=== PATIENT | male | born 1995 | race Native Hawaiian/Other Pacific Islander ===

== ENCOUNTER 2016-05-17 21:54 | Observation (INO) | payer SELFPAY ==
[~2016-05-17] VITALS: Ht 162.6 cm; Wt 58.8 kg
[2016-05-17 22:57] VITALS: BP 128/74; PULSE 78; RESP 18; O2SAT 99
[2016-05-17 23:55] LABS: BASOPHILS % (AUTO) 0.1 % (0-3); EOSINOPHILS % (AUTO) 0.1 % (0-5); MONOCYTES % (AUTO) 8.5 % (4-12); Mean Corpuscular Hemoglobin 30.8 pg (27.0-35.0); Mean Corpuscular Volume 90.1 fL (81-100); NEUTROPHILS % (AUTO) 85.8 % (40-74); Platelet Count 281 bil/L (150-400)
[2016-05-18] VITALS (15 sets, daily range): BP systolic 98–129; BP diastolic 5–79; PULSE 53–72; RESP 10–19; O2SAT 94–100
[2016-05-18] MEDS ORDERED: Iohexol 300 mg/mL 30 mL Inj PO ONE
[2016-05-18] MEDS ORDERED: Sodium Chloride LOK Flush 10 mL Syringe IVFLUSH SCH (00:30)
[2016-05-18] MEDS ORDERED: metroNIDAZOLE Inj 500 MG in IV Premix 1 EACH IV ONE (01:40)
[2016-05-18] MEDS ORDERED: cefTRIAXone Inj 2,000 MG in IV Premix 1 EACH IV ONE (01:40)
[2016-05-18] MEDS ORDERED: 0.9% Sodium Chloride 1,000 ML IV SCH (01:40)
[2016-05-18] MEDS ORDERED: Ondansetron 2 mg/mL 2 mL Inj IVPUSH PRN ×2 (01:45→08:25)
[2016-05-18] MEDS ORDERED: Polyethylene Glycol (PEG) 17 Gm Powder PO PRN (01:45)
[2016-05-18] MEDS ORDERED: Alum-Mag Hydrox-Simeth 30 mL Suspension PO PRN (01:45)
[2016-05-18] MEDS ORDERED: metroNIDAZOLE Inj 500 MG in IV Premix 1 EACH IV SCH (01:50)
[2016-05-18] MEDS ORDERED: HYDROmorphone 1 mg/mL Inj IVPUSH PRN ×2 (01:50→08:25)
--- NOTE | 2016-05-18 02:18 | ED.REPORT ---
HPI-Abd Pain M Under 40 Date of Service May 17, 2016 ED Provider: Ankur Burr DO History of Present Illness: Mr. Vimal Peña is a healthy 20 year old gentlman with no significnat past medical history who presents to the [facility] Emergency Department with a 6 hour history of intermittant abdominal pain and 2 episodes of vomiting clear fluid. He awoke today around 5pm and states that his abdominal pain was 7/10 and dull that resembled muscle spasms. He denies any sick contacts, ingesting chemicals/food, and testicular pain. He reports mild subjective fever, mild abdominal pain, mild non productive cough, mild nasal congestion, 1 day hx of mild constipation. Nausea has since subsided. He denies headache, dizziness, chest pain, shortness of breath, diarrhea. Nursing Notes Stated Complaint: ABDOMINAL PAIN/FEVER Chief Complaint: Male Abdominal Pain Nursing Notes Reviewed: Yes Allergies: Coded Allergies: No Known Allergies (Unverified , 05/17/16) Scheduled Polyethylene Glycol 3350 (Miralax) 17 Gm Powd.pack 17 GM PO DAILY Scheduled PRN oxyCODONE (oxyCODONE) 5 Mg Tablet 5 MG PO Q4H PRN PRN For Pain Miscellaneous Medications ([No Meds]) General Time Seen by MD: 23:14 Chief Complaint Abdominal pain Review of Systems Review of Systems Note: A comprehensive review of systems was conducted with the patient and found to be negative except as above in the History of Present Illness. Physical Exam Physical Exam Notes: General: Young healthy gentleman in no acute distress, well-developed, well-nourished, appropriately interactive HEENT: Normocephalic, atraumatic. External ears without defect. Pupils equal, round, and reactive to light and accommodation. Anicteric sclerae, moist conjunctivae, and no lid lag. Oropharynx free of erythema and cobble stoning with moist mucosa. Neck: Supple with full range of motion. No jugular venous distension. No bruits. No lymphadenopathy or thyromegaly. Cardiovascular: Regular rate and rhythm with no murmurs, rubs, or gallops appreciated Pulmonary: Clear to auscultation bilaterally with no crackles, wheezes, or rhonchi. Normal respiratory effort with no use of accessory muscles. Abdomen: Bowel tones present. Soft, Very mildly tender to palpation on right lower quadrant, nondistended. No hepatosplenomegaly or masses appreciated. Extremities: No clubbing, cyanosis, edema, or lymphadenopathy appreciated. Skin: Normal temperature, turgor, and texture; no rash, ulcers, or subcutaneous nodules appreciated. Neurological: Cranial nerves grossly intact. Normal muscle strength, tone, and bulk. Reflexes, coordination, and sensory function within normal limits. No known gait impairment. Psychiatric: Normal mood and affect. Alert and oriented to person, place, and time. Initial Vital Signs Vital Signs (First) Date Time Temp Pulse Resp B/P Pulse Ox O2 Delivery O2 Flow Rate FiO2 05/17/16 22:57 36.3 78 18 128/74 99 Room Air Interpretation & Diagnostics Lab Results Interpretation Result Diagram: 05/17/16 2339 05/17/16 2339 Test 05/17/16 23:39 White Blood Count 15.5th/mm3 (3.8-10.1) Red Blood Count 4.96mil/mm3 (4.40-5.80) Hemoglobin 15.3g/dL (13.8-17.2) Hematocrit 44.7% (41.0-50.0) Mean Corpuscular Volume 90.1fL (81-100) Mean Corpuscular Hemoglobin 30.8pg (27.0-35.0) Mean Corpuscular Hemoglobin Concent 34.2% (32.0-37.0) Red Cell Distribution Width 12.1% (12.3-15.4) Platelet Count 281bil/L (150-400) Neutrophils (%) (Auto) 85.8% (40-74) Lymphocytes (%) (Auto) 5.2% (14-46) Monocytes (%) (Auto) 8.5% (4-12) Eosinophils (%) (Auto) 0.1% (0-5) Basophils (%) (Auto) 0.1% (0-3) Sodium Level 140mEq/L (134-144) Potassium Level 4.0mEq/L (3.5-5.2) Chloride Level 103mEq/L (97-108) Carbon Dioxide Level 25mmol/L (18-29) Blood Urea Nitrogen 13mg/dL (6-20) Creatinine 0.72mg/dL (0.76-1.27) Estimat Glomerular Filtration Rate 148mL/min (>59) Glucose Level 98mg/dL (60-99) Calcium Level 9.0mg/dL (8.5-10.1) Total Bilirubin 0.7mg/dL (0.0-1.2) Aspartate Amino Transf (AST/SGOT) 25U/L (0-50) Alanine Aminotransferase (ALT/SGPT) 21U/L (0-44) Alkaline Phosphatase 90U/L (25-150) Total Protein 7.7g/dL (6.4-8.4) Albumin 4.2g/dL (3.4-5.0) Hold Diaz Top Tube Received (Received) Re-Eval/Medical Decision Med Decision/Clinical Course 1. Acute appendicitis, present on admission, Active. - CT KUB with oral / IV contrast Consistent with appendicitis with no evidence of abscess or perforation. - Vitals stable, WBC 15.5, - IV Rocephin 2GM x 1. IV Flagyl 500 mg Q8H. - IV Dilaudid 0.5 mg [id number]. - IV NS @ 100ml/hr. - Admit to surgery management - NPO and bed rest. Acetaminophen for mild pain when necessary. Bowel regimen Senna and MiraLAX scheduled and PRN. Zofran when necessary for nausea and vomiting. Patient Discharge & Departure Shift Change Sign-Out Discussed Complaint(s): Yes Laboratory Evaluation: Lab evaluation discussed Response to Therapy: Unchanged Primary Impression: Acute appendicitis Acute appendicitis type: unspecified acute appendicitis type Qualified Code: K35.80 - Unspecified acute appendicitis Disposition: Home Attending Statement 20-year-old male with vomiting and right lower quadrant tenderness. He is mildly tender on exam with some voluntary guarding. White blood cell count is elevated at 15,000. CT scan report per [facility] is acute early appendicitis. This certainly matches history, physical examination and laboratory work. Case discussed with Dr. Mendez from surgery. We will admit for IV antibiotics and surgical intervention later today. FRANKIE JUAREZ DO May 17, 2016 23:43 Ankur Burr DO May 18, 2016 02:17
[2016-05-18] MEDS ORDERED: HYDROmorphone 0.5 mg/0.5 mL iSecure Syringe IVPUSH PRN ×2 (02:45→03:05)
--- NOTE | 2016-05-18 04:22 | NUR ---
Admission Patient arrived to [facility] from ED via wheelchair, report taken from Chari MENSAH. ED visit d/t abdominal pain, nausea and vomiting. Observation status plan of appendectomy in the am. Transfers independently, NPO in preparation of surgery. A&O X4, able to make needs known. Oriented to call light, TV, and phone. Denies pain and or discomfort at this time. Continue to monitor pain.
--- NOTE | 2016-05-18 07:30 | NUR ---
to OR for lap appendectomy
--- NOTE | 2016-05-18 07:36 | PCM.HPANE ---
Patient Data Date of Service: May 18, 2016 Surgeon Admitting Provider:Apolinar Mendez MD Attending Provider:Apolinar Mendez MD Primary Care Physician:Franko Other Provider:Thi Gillespie Anesthesia Reason for Visit Acute Appendicitis Ht/WT & BMI Height (Feet): 5 Height (Inches): 4.00 Weight (Kilograms): 58.800 Body Mass Index 22.13 Allergies Coded Allergies: No Known Allergies (Unverified , 05/17/16) Past Anesthesia History Anesthesia History: Denies:: Anesthesia Reactions, Fam Anesthesia Reaction History History of ENT Problems?: No Hx of Heart Problems?: No Hx of Respiratory Problem?: No Hx Neurologic Problems?: No Hx of GI Problems?: No Hx of Problems?: No Male Hx: Denies:: Prostate Problems Scrotal Mass Testicular Surgery Hx Musculoskeletal Problems?: No Hx of Psycho/Social Problems?: No Hx Any Other Health Problems?: No History Blood Transfusions: Positive for:: Accept Blood Products? Denies:: Blood Transfusions Hx Alcohol Use: NoHx Substance Use: No Stop/Bang Treated for Sleep Apnea?: No Do You Have a CPAP Machine?: No S-Snoring: Do You Snore Loudly: No T-Tired: feel tired, fatigued: No O-Obsered: Observed not breath: No P-Blood Pressure: treated: No B- Body Mass Index > 35 kg/m2: No A- Age over 50: No N- Neck Large Circumference: No G- Gender Male: Yes MAX Total Score: 1 MAX Risk Assessment: Low Risk, <3 Yes Risk Assessment Category Category 1A: Patient has history of documented sleep apnea, and HAS NOT received any narcotic, sedative or anesthesia administration during this stay. Category 1B: Patient has history of documented sleep apnea, and HAS received any narcotic , sedative or anesthesia administration during this stay Category 2: Patient has SUSPECTED Obstructive Sleep Apnea, and HAS received any narcotic , sedative or anesthesia administration during this stay. Category 3: Patient has SUSPECTED Obstructive Sleep Apnea and HAS NOT received narcotic, sedative or anesthesia administration during this stay. Category 4: Outpatient in Procedural Areas with known sleep apnea or who screen positive for High Risk via the STOP/BANG questionnaire. Exam Exam Vital Signs Vital Signs Date Time Temp Pulse Resp B/P Pulse Ox O2 Delivery O2 Flow Rate FiO2 05/18/16 05:20 37.0 64 16 129/71 100 Room Air 05/18/16 03:06 37.1 72 19 120/78 99 Room Air 05/18/16 03:04 36.5 78 18 124/78 99 Room Air General Appearance: Alert, Oriented X3, Cooperative, No Acute Distress HEENT/AIRWAY: MP 2 Lungs: Clear to Auscultation, Normal Air Movement Heart: Exam Unremarkable, Regular Rate/Rhythm, No Murmurs/Rubs/Gallops Meds/Labs/Diagnostics Admission Meds Current Medications Iohexol (Omnipaque-300 Inj) 9,000 mg ONCE ONCE PO Last administered on 00:23; Start 05/18/16 at 00:00; Stop 05/18/16 at 00:01; Status DC Sodium Chloride 10 ml 10 ml TRINITY IVFLUSH Last administered on 05/18/16 00:55; Start 05/18/16 at 00:30 Ceftriaxone Sodium/Dextrose 2000 mg/Premix 50 ml @ 100 mls/hr ONCE ONCE IV Last administered on 05/18/16 02:02; Start 05/18/16 at 01:40; Stop 05/18/16 at 02:09; Status DC Sodium Chloride 1,000 ml @ 100 mls/hr Q10H IV Last administered on 05/18/16 02:02; Start 05/18/16 at 01:40 Metronidazole/ Sodium Chloride/ Premix (Flagyl Inj/IV Premix) 100 ml @ 200 mls/ hr Q8 IV Last administered on 05/18/16 02:34; Start 05/18/16 at 01:50 Labs Test 05/17/16 23:39 White Blood Count 15.5th/mm3 (3.8-10.1) Red Blood Count 4.96mil/mm3 (4.40-5.80) Hemoglobin 15.3g/dL (13.8-17.2) Hematocrit 44.7% (41.0-50.0) Mean Corpuscular Volume 90.1fL (81-100) Mean Corpuscular Hemoglobin 30.8pg (27.0-35.0) Mean Corpuscular Hemoglobin Concent 34.2% (32.0-37.0) Red Cell Distribution Width 12.1% (12.3-15.4) Platelet Count 281bil/L (150-400) Neutrophils (%) (Auto) 85.8% (40-74) Lymphocytes (%) (Auto) 5.2% (14-46) Monocytes (%) (Auto) 8.5% (4-12) Eosinophils (%) (Auto) 0.1% (0-5) Basophils (%) (Auto) 0.1% (0-3) Sodium Level 140mEq/L (134-144) Potassium Level 4.0mEq/L (3.5-5.2) Chloride Level 103mEq/L (97-108) Carbon Dioxide Level 25mmol/L (18-29) Blood Urea Nitrogen 13mg/dL (6-20) Creatinine 0.72mg/dL (0.76-1.27) Estimat Glomerular Filtration Rate 148mL/min (>59) Glucose Level 98mg/dL (60-99) Calcium Level 9.0mg/dL (8.5-10.1) Total Bilirubin 0.7mg/dL (0.0-1.2) Aspartate Amino Transf (AST/SGOT) 25U/L (0-50) Alanine Aminotransferase (ALT/SGPT) 21U/L (0-44) Alkaline Phosphatase 90U/L (25-150) Total Protein 7.7g/dL (6.4-8.4) Albumin 4.2g/dL (3.4-5.0) Hold Diaz Top Tube Received (Received) Plan Impression Patient chart reviewed, patient interviewed and anesthestic plan with risks, benefits, and alternatives discussed, and informed consent obtained. NPO Status: >8h ASA Physical Status: ASA1 Normal Healthy Anesthetic Plan: GA Bene/Risks/Altern/Consents: Yes HP Complete Prior to Induction: Yes Morgan Villavicencio MD May 18, 2016 07:36
[2016-05-18] MEDS ORDERED: Cefotetan Inj 2,000 MG in IV Premix 1 EACH IV ONE (07:40)
[2016-05-18] MEDS ORDERED: Lactated Ringer's 1,000 ML IV ONE (07:49)
--- NOTE | 2016-05-18 08:13 | HP ---
[address] [address] HISTORY AND PHYSICAL PATIENT: KELLIE LACEY : 1995 MR#: [id number] ADMIT: 05/18/2016 JOB ID: [id number] DATE OF VISIT: 05/18/2016 CHIEF COMPLAINT: A 20-year-old gentleman with possible appendicitis in consultation at the request of Ankur Burr DO. HISTORY OF PRESENT ILLNESS: The patient is a 20-year-old gentleman who was otherwise healthy until around 5:30 a.m. yesterday evening, when he started having abdominal pain, followed by a few episodes of vomiting. He also had subjective fever when he presented to the emergency department. He does not have any significant constipation or diarrhea that he talks about. He was evaluated in the emergency department and Dr. Burr diagnosed with appendicitis, and he was admitted to my team with antibiotics. Overnight his abdominal pain has improved, but he still has pain in the right lower quadrant. OTHER MEDICAL PROBLEMS: None. PRIOR OPERATIONS: None. MEDICATIONS AT HOME: None. ALLERGIES: None. REVIEW OF SYSTEMS: Twelve point review of systems negative other than the pertinent positives noted in history of present illness and other medical problems. INVESTIGATIONS: Labs: May 17, 2016: WBC 15.5, hemoglobin 15.3, platelets 281. Creatinine 0.72. Normal liver function studies. A CT abdomen and pelvis from May 18, 2016 shows inflamed appendix with surrounding fat stranding, not particularly enlarged but was thought to be consistent with appendicitis. ASSESSMENT AND PLAN: Discussed the pathophysiology and treatment rationale for appendicitis and recommended laparoscopic appendectomy. After discussing the risks, benefits and alternatives, he wished to go ahead and we will proceed accordingly. Depending on how he is doing. Postoperatively, he might be able to go home either later today or tomorrow.
--- NOTE | 2016-05-18 08:16 | DRSVH ---
PROCEDURE: CT ABDOMEN AND PELVIS WITH CONTRAST ([id number]) INDICATIONS: rlq pain TECHNIQUE: After the administration of intravenous contrast, 5 mm thick sections acquired from the diaphragm to the symphysis. 5 mm coronal and sagittal reformats were acquired. For radiation dose reduction, the following was used: automated exposure control, adjustment of mA and/or kV according to patient siz e. COMPARISON: None. FINDINGS: Image quality: Excellent. ABDOMEN: Lung bases: Lung bases are clear. Heart size is normal. Solid organs: Liver and spleen are normal in size and enhancement. Focal fatty infiltration noted in the liver adjacent to the falciform ligament. Gallbladder is within normal limits. Biliary system i s non dilated. Pancreas enhances normally. No adrenal nodules. Kidneys demonstrate normal size and enhancement, without hydronephrosis. Peritoneum and bowel: Bowel loops demonstrate normal wall thickness and caliber. No free fluid or a ir. The appendix is at the upper limits of normal to slightly enlarged measuring approximately 8-9 mm in diameter. Mild stranding noted in the fat adjacent to the appendix. Findings are suspicious for v laine early acute appendicitis. Nodes and vessels: No retroperitoneal or mesenteric adenopathy by size criteria. Aorta and inferior vena cava are normal in size. Miscellaneous: No ventral hernias. PELVIS: Genitourinary: Bladder wall thickness is normal. Miscellaneous: No inguinal hernias or adenopathy. Bones: No suspicious bony lesions. No vertebral body compression fractures. IMPRESSION: 1. Appendix is at the upper limits of normal to slightly increased in diameter measuring 8-9 mm with slight periappendiceal fat stranding. Findings may represent a very early manifestation of acute appe ndicitis. Please correlate with clinical and laboratory data. 2. Findings and recommendations discussed with Dr. Apolinar Mendez Dictated by: Sherlyn Hess MD, PhD on 05/18/2016 at 8:14 Approved by: Sherlyn Hess MD, PhD on 05/18/2016 at 8:14
[2016-05-18] MEDS ORDERED: Bupivacaine-MPF 0.5% 30 mL Inj INFILTRATE ONE (08:17)
[2016-05-18] MEDS ORDERED: MetoCLOpramide 5 mg/mL 2 mL Inj IVPUSH PRN (08:25)
[2016-05-18] MEDS ORDERED: Labetalol 5 mg/mL 4 mL Inj IV PRN (08:25)
[2016-05-18] MEDS ORDERED: hydrALAZINE 20 mg/mL Inj IVPUSH PRN (08:25)
[2016-05-18] MEDS ORDERED: EPHEDrine Sulfate 50 mg/mL Inj IVPUSH PRN (08:25)
[2016-05-18] MEDS ORDERED: Phenylephrine 10,000 mCg/mL Inj IVPUSH PRN (08:25)
[2016-05-18] MEDS ORDERED: fentaNYL-PF 50 mCg/mL 2 mL Inj IVPUSH PRN (08:25)
[2016-05-18] MEDS ORDERED: Lactated Ringer's 1,000 ML IV SCH (08:25)
[2016-05-18] MEDS ORDERED: Atropine 0.4 mg/mL Inj IVPUSH PRN (08:25)
[2016-05-18] MEDS ORDERED: Lactated Ringer's 500 ML IV PRN (08:25)
[2016-05-18] MEDS ORDERED: OXYC5TAB72 PO (08:51)
[2016-05-18] MEDS ORDERED: POLY17PO6 PO (08:51)
--- NOTE | 2016-05-18 08:58 | PCM.ANEP1 ---
Post Anesthesia Phase 1 PACU Phase 1 Assessment Date of Service: May 18, 2016 Vital Signs 36.5 117/79 66 13 99% FM Anesthetic Administered: GA Level of Alertness: Sleeping, hard to arouse WEBBER's with Equal Strength: Yes Pain: No Nausea or Vomiting: No Airway Device: Nasal Airway Oxygen Delivery: Simple Mask Lungs: Clear to Auscultation, Normal Air Movement Morgan Villavicencio MD May 18, 2016 08:58
[2016-05-18] MEDS ORDERED: No Meds (09:12)
--- NOTE | 2016-05-18 12:11 | PCM.ANEP2 ---
Post Anesthesia Evaluation ASA/CMS Post Anesthesia Date of Service: May 18, 2016 VS in Patient's Normal Range?: Yes Resp Stable; Airway Patent?: Yes CV Function & Hydration Stable: Yes Mental Status Recovered?: Yes Pain control Satisfactory?: Yes N/V Control Satisfactory?: Yes Morgan Villavicencio MD May 18, 2016 12:11
[2016-05-18] MEDS ORDERED: Rocuronium 10 mg/mL 5 mL Inj ONE (14:17)
[2016-05-18] MEDS ORDERED: Propofol 10,000 mCg/mL 20 mL Inj ONE (14:17)
[2016-05-18] MEDS ORDERED: fentaNYL-PF 50 mCg/mL 2 mL Inj ONE (14:17)
[2016-05-18] MEDS ORDERED: Ondansetron 2 mg/mL 2 mL Inj ONE (14:17)
[2016-05-18] MEDS ORDERED: Glycopyrrolate 0.2 mg/mL 5 mL Inj ONE (14:17)
[2016-05-18] MEDS ORDERED: Neostigmine 1 mg/mL 5 mL Inj ONE (14:17)
[2016-05-18] MEDS ORDERED: Dexamethasone 4 mg/mL Inj ONE (14:17)
--- NOTE | 2016-05-18 14:45 | OP ---
[address] [address] OPERATIVE REPORT PATIENT: KELLIE LACEY : 1995 MR#: [id number] ADMIT: 05/18/2016 JOB ID: [id number] DATE OF SURGERY: 05/18/2016 PREOPERATIVE DIAGNOSIS(ES): Acute appendicitis. POSTOPERATIVE DIAGNOSIS(ES): Acute appendicitis. PROCEDURE PERFORMED: Laparoscopic appendectomy. SURGEON: Apolinar Mendez MD. SAMPLE MAKER HAND: Sita Pollard PA-C. COMPLICATIONS: None. ANESTHESIA: General endotracheal, with local. INDICATIONS: The patient is a 20-year-old gentleman who presented with abdominal pain, nausea and vomiting yesterday. He went to the emergency department, and he had elevated white count, with CT showing acute appendicitis. He was admitted to the hospital on antibiotics and after discussing the risks, benefits, and alternatives, he was brought to the operating room today for laparoscopic appendectomy. PROCEDURE DETAILS: He was placed in supine position, underwent smooth induction of general anesthesia. A Navas catheter was placed. Abdomen was prepped and draped in the usual sterile fashion. Surgical time-out was undertaken using safety checklist, and all were in agreement. I began by making an infraumbilical curvilinear incision and entered the abdomen using a combination of open Juan Antonio technique and Optiview trocar. After obtaining pneumoperitoneum, I upsized this port to a 12 and then placed two additional 5 mm trocars under direct vision in the suprapubic location and the left lower quadrant. I identified the appendix, which obviously appeared inflamed but not gangrenous or perforated. I divided the appendiceal mesentery with electrocautery with good hemostasis and then after freeing it to the base, controlled the base of the appendix with two Endoloops on the patient's side and one on the specimen side and divided the appendix and removed it through the umbilical port site. I then suctioned all the fluid, which was cloudy in the pelvis, clean and after that, removed ports under direct vision. I exsufflated the abdomen and closed the umbilical port site with 0 Vicryl [id number] suture. The site was infiltrated with 0.5% bupivacaine. Skin was reapproximated with 4-0 Monocryl. Steri-Strips and sterile dressing were applied. The patient was recovered from anesthesia and was taken to the recovery room in a stable condition.
[2016-05-19] MEDS ORDERED: Polyethylene Glycol (PEG) 17 Gm Powder PO SCH (08:30)
--- NOTE | 2016-05-19 10:09 | PCM.DC.SUR ---
Discharge Summary Date of Service: Date of Hospital Admission: May 18, 2016 at 02:35 Date of Operation(s): 05/18/2016 Date of Discharge: 05/18/2016 Diagnosis at Time of Discharge Acute appendicitis Problems: Operation Laparoscopic appendectomy Brief History and Physical: The patient is a 20-year-old gentleman who was otherwise healthy until around 5: 30 a.m. yesterday evening, when he started having abdominal pain, followed by a few episodes of vomiting. He also had subjective fever when he presented to the emergency department. He does not have any significant constipation or diarrhea that he talks about. He was evaluated in the emergency department and Dr. Burr diagnosed with appendicitis, and he was admitted to my team with antibiotics. Overnight his abdominal pain has improved, but he still has pain in the right lower quadrant. Consultants: Dr. Mendez; General Surgery Hospital Course: After undergoing the above procedure the patient was extubated in the operating room and taken to recovery in stable condition. The patient was in recovery for several hours. His pain was controlled. Vital signs stable and ready for discharge to his home. Vital signs on discharge Temperature 37.0 Pulse 71 Respirations 14 Blood pressure 113/70 Oxygen saturations 99% room air Pathology: Pending Disposition: Home Follow-up Plan: DR. MENDEZ 1 to 2 weeks ([No Meds]) (Reported) Polyethylene Glycol 3350 (Miralax) 17 Gm Powd.pack 17 GM PO DAILY oxyCODONE (oxyCODONE) 5 Mg Tablet 5 MG PO Q4H PRN PRN For Pain Sita Pollard PA-C May 19, 2016 10:09
--- NOTE | 2016-05-19 14:00 | PATH ---
SURGICAL PATHOLOGY Attending Physician:Apolinar Mendez MD CASE STATUS: Signed Out PATIENT NAME: KELLIE LACEY PID: [id number] : 1995 DATE COLLECTED:05/18/2016 18:32 SPECIMEN: Appendix CLINICAL HISTORY: APPENDIX FINAL DIAGNOSIS: 1.APPENDIX: ACUTE APPENDICITIS. ICD10 CODE K35.80 GROSS DESCRIPTION: The specimen is received in one formalin filled container labeled with the patient's name, sublabeled "appendix" and consists of one cylindrical sharma appendix measuring 4.3 x 1.0 x 1.0 CM. The serosal surface is light sharma, smooth and glistening. There is a small amount of attached fatty tissue. Sectioning reveals the wall to be thickened to approximately 0.6 to CM. The lumen contains a small amount of red-sharma semisolid to friable material customer sales representative sections are cemented in one cassette. 05/18/2016 DAC MICRO DESCRIPTION: See diagnosis. ICD-9 CODES: CPT CODES: 1: 17101 Electronically Signed Out Sandeep Mendes MD [facility] [address], [place] [address] Technical component performed at [facility], [address] [place] [address] [address], [place], [address]
== END 2016-05-18 14:18 | disposition home or self-care (01) ==
LOC: EDSEX 21:54 → SED 21:54 → OSC 05-18 02:35
PROVIDERS: ADMIT Student in an Organized Health Care Education/Training Program; ATTEND Student in an Organized Health Care Education/Training Program
DX: K35.80 Unspecified acute appendicitis (principal)
CPT/HCPCS: 36415; 44970; 74177; 80053; 85025; G0378; J0696; J1100; J2250; J2405; J2710; J3490; J7030; J7120; Q9967